=== PATIENT | male | born 1960 | race African-American/Black ===

== ENCOUNTER 2018-06-12 14:41 | Emergency (ER) | payer MEDICAID ==
[~2018-06-12] VITALS: Ht 188 cm; Wt 101.2 kg
[2018-06-12 15:09] VITALS: BP 145/92
[2018-06-12] MEDS ORDERED: KETOROLAC TROMETH 60MG/2ML VIAL IM ONE (15:30)
== END 2018-06-12 16:12 | disposition home or self-care (01) ==
LOC: ER 14:41
DX: M54.41 Lumbago with sciatica, right side (principal); E78.5 Hyperlipidemia, unspecified
CPT/HCPCS: 96372; 99283; J1885